=== PATIENT | female | born 1990 | race Two or more races ===

== ENCOUNTER 2017-02-15 05:59 | Emergency (ER) | payer OTHER ==
[~2017-02-15] VITALS: Ht 162.6 cm; Wt 72.6 kg
[2017-02-15 06:10] VITALS: BP 105/76
== END 2017-02-15 07:39 | disposition left against medical advice (07) ==
LOC: ER 06:01
DX: R11.2 Nausea with vomiting, unspecified (principal); M54.5 Low back pain; Z53.21 Procedure and treatment not carried out due to patient leaving prior to being seen by health care provider

== ENCOUNTER 2017-06-08 16:38 | Emergency (ER) | payer OTHER ==
[~2017-06-08] VITALS: Ht 162.6 cm; Wt 59.0 kg
[2017-06-08 16:42] VITALS: BP 109/71
== END 2017-06-08 20:35 | disposition left against medical advice (07) ==
LOC: EDBD 16:38 → ER 16:46
DX: R10.9 Unspecified abdominal pain (principal); Z53.21 Procedure and treatment not carried out due to patient leaving prior to being seen by health care provider

== ENCOUNTER 2025-03-17 22:18 | Emergency (ER) | payer MEDICAID, OTHER ==
[~2025-03-17] VITALS: Ht 170.2 cm; Wt 68.1 kg
[2025-03-17 22:28] VITALS: TEMP 98.3
[2025-03-17] MEDS: HYDROcodone-ACET 10/325MG TAB PO ONE (23:43)
[2025-03-17] MEDS: ONDANSETRON ODT 4 MG TAB PO ONE (23:43)
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
[2025-03-18] VITALS: BP 127/81; PULSE 88; RESP 18; O2SAT 98
[2025-03-18] MEDS: LIDOCAINE 1% HCL (LOCAL ANESTH.) INJ 20ML MDV IJ ONE
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
[2025-03-18] MEDS ORDERED: HYDR-4798 PO (00:52)
[2025-03-18] MEDS ORDERED: IBUP-1455 PO (00:52)
[2025-03-18] MEDS ORDERED: CEPH250C PO (00:52)
== END 2025-03-18 00:53 | disposition home or self-care (01) ==
LOC: ER 22:18 → EDBD 22:18 → ER 03-18 00:53
DX: S01.81XA Laceration without foreign body of other part of head, initial encounter (principal); S16.1XXA Strain of muscle, fascia and tendon at neck level, initial encounter; F10.90 Alcohol use, unspecified, uncomplicated; Z90.49 Acquired absence of other specified parts of digestive tract; V89.2XXA Person injured in unspecified motor-vehicle accident, traffic, initial encounter; Y93.89 Activity, other specified; Y92.488 Other paved roadways as the place of occurrence of the external cause; Y99.8 Other external cause status; Y90.9 Presence of alcohol in blood, level not specified
CPT/HCPCS: 12001; 12013; 70450; 70486; 72125; 99284; Q0162

== ENCOUNTER 2025-03-28 08:36 | Emergency (ER) | payer MEDICAID, OTHER ==
[~2025-03-28] VITALS: Ht 160 cm; Wt 72.9 kg
[~2025-03-28 08:36] MED LIST: CEPH250C PO; HYDR-4798 PO; IBUP-1455 PO
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
[2025-03-28 09:54] LABS: Urine Protein, UAD Negative (Negative)
--- NOTE | 2025-03-28 11:00 | DVH ---
Exam: US PELVIC Date: 03/28/2025 10:25 AM Clinical History: Possible right sided mass Comparison: None Technique: Targeted sonographic evaluation of the soft tissues of the right hip was obtained utilizing grayscale and color Doppler imaging. Findings /impression: Fluid collection with septations in the soft tissues of the right hip measuring approximately 6.3 x 3 .7 x 6.3 cm which may represent a hematoma.
[2025-03-28 11:29] VITALS: BP 136/86; PULSE 79; RESP 17; TEMP 98.1; O2SAT 98
== END 2025-03-28 11:30 | disposition home or self-care (01) ==
LOC: ER 08:42
DX: S01.81XD Laceration without foreign body of other part of head, subsequent encounter (principal); S30.0XXA Contusion of lower back and pelvis, initial encounter; Z48.02 Encounter for removal of sutures; Z90.49 Acquired absence of other specified parts of digestive tract; M21.951 Unspecified acquired deformity of right thigh; X58.XXXD Exposure to other specified factors, subsequent encounter
CPT/HCPCS: 76856; 81001; 81025